=== PATIENT | male | born 1970 | race Caucasian/White ===

== ENCOUNTER 2016-09-06 21:44 | Emergency (ER) | payer OTHER ==
--- NOTE | 2016-09-06 22:00 | PDOC ---
History of Present Illness - General Chief Complaint: Rash Stated Complaint: RASH ON HANDS AND FEET Time Seen by Provider: 09/06/16 21:46 History Source: Patient Exam Limitations: No Limitations - History of Present Illness Initial Comments: 46 yo M marquita DM2 presents with rash to the soles of the feet and palms of his hands. Associated with irritation of the throat, particularly with meals. He denies any sick contacts, has a 10 year old at home who is well. The rash is painful, worse with walking on his feet, better with rest. No fever. He notes blisters to the hands and feet, no open wounds. Review of Systems - Review of Systems Able to Perform ROS?: Yes Comments:: GENERAL/CONSTITUTIONAL: No fever or chills. No weakness. HEAD, EYES, EARS, NOSE AND THROAT: No change in vision. No ear pain or discharge. No sore throat. CARDIOVASCULAR: No chest pain or shortness of breath. RESPIRATORY: No cough, wheezing, or hemoptysis. GASTROINTESTINAL: No nausea, vomiting, diarrhea or constipation. GENITOURINARY: No dysuria, frequency, or change in urination. MUSCULOSKELETAL: No joint or muscle swelling or pain. No neck or back pain. SKIN: +Rash NEUROLOGIC: No headache, vertigo, loss of consciousness, or change in strength/ sensation. ENDOCRINE: No increased thirst. No abnormal weight change. HEMATOLOGIC/LYMPHATIC: No anemia, easy bleeding, or history of blood clots. ALLERGIC/IMMUNOLOGIC: No hives or skin allergy. *Physical Exam - Physical Exam Comments: GENERAL: Awake, alert, and fully oriented, in no acute distress HEAD: No signs of trauma EYES: PERRLA, EOMI, sclera anicteric, conjunctiva clear ENT: Auricles normal inspection, hearing grossly normal, nares patent, oropharynx with small vesicular lesions, no tonsillar hypertrophy, no exudates. Moist mucosa EXTREMITIES: Normal range of motion, no edema. No clubbing or cyanosis. No cords, erythema, or tenderness NEUROLOGICAL: Cranial nerves II through XII grossly intact. Normal speech, normal gait SKIN: Warm, Dry, normal turgor. +Vesicular rash to the palms of hands and plantar surfaces of the feet. No open lesions, no surrounding cellulitis. *DC/Admit/Observation/Transfer Diagnosis at time of Disposition: Hand, foot and mouth disease - Discharge Dispostion Disposition: HOME Condition at time of disposition: Stable Admit: No - Patient Instructions Printed Discharge Instructions: Hand, Foot, and Mouth Disease Additional Instructions: KEEP FEET COVERED WITH COTTON SOCKS. NO PEDICURES UNTIL THE BLISTERS ARE COMPLETELY HEALED. TYLENOL OR IBUPROFEN FOR PAIN. LOZENGES FOR THROAT PAIN. FOLLOW UP WITH YOUR PRIMARY CARE IN 2-3 DAYS
[2016-09-06 22:17] VITALS: BP 150/91; PULSE 97; TEMP 97.7; BMI 34.7
== END 2016-09-06 22:17 | disposition home or self-care (01) ==
LOC: FER 21:44
DX: B08.4 Enteroviral vesicular stomatitis with exanthem (principal); E11.9 Type 2 diabetes mellitus without complications
CPT/HCPCS: 99281-25